=== PATIENT | male | born 1980 | race Two or more races ===

== ENCOUNTER 2024-11-15 21:15 | Emergency (ER) | payer OTHER ==
[~2024-11-15] VITALS: Ht 180.3 cm; Wt 100.8 kg
[2024-11-15 21:19] VITALS: BP 136/87; PULSE 68; RESP 24; TEMP 98.9; O2SAT 100
[2024-11-15 21:40] LABS: GLUCOMETER DEV NAME(LOC) ERT.6; GLUCOSE,POINT OF CARE 108 MG/DL (70-110)
[2024-11-15] MEDS ORDERED: CABENUVA IM (22:24)
== END 2024-11-15 23:35 | disposition left against medical advice (07) ==
LOC: EMS 21:15
DX: R51.9 Headache, unspecified (principal); R07.89 Other chest pain; R73.9 Hyperglycemia, unspecified; Z53.21 Procedure and treatment not carried out due to patient leaving prior to being seen by health care provider
CPT/HCPCS: 82962; 93005

== ENCOUNTER → 2024-12-01 | Emergency (ER) | payer OTHER ==
[~2024-12-01] VITALS: Ht 180.3 cm; Wt 100.0 kg
[~2024-12-01] MED LIST: CABENUVA IM
[2024-12-01 16:33] VITALS: BP 105/85; PULSE 108; RESP 20; TEMP 98.6; O2SAT 98
[2024-12-01 17:20] LABS: COVID AG,FIA SOURCE NASAL SWAB
[2024-12-01 17:20] LABS: BASOPHILS % (AUTO) 0.3 % (0.0-2.0); EOSINOPHILS % (AUTO) 0.4 % (1.0-6.0); HEMATOCRIT 46.8 % (41-53); HEMOGLOBIN 15.9 g/dL (13.5-17.5); LYMPHOCYTES # (AUTO) 1.3 K/uL (1.0-4.8); LYMPHOCYTES % (AUTO) 13.7 % (22.0-44.0); MEAN CORPUSCULAR HEMOGLOBIN 30.1 pg (26.0-34.0); MEAN CORPUSCULAR VOLUME 89 fL (80-100); MONOCYTES # (AUTO) 1.1 K/uL (0.1-1.0); MONOCYTES % (AUTO) 11.6 % (2.0-9.0); NEUTROPHILS # (AUTO) 6.8 K/uL (1.8-7.7); PLATELET COUNT (AUTO) 154 K/uL (150-450); RED BLOOD CELL COUNT(AUTO) 5.28 MIL/uL (4.50-5.90); RED CELL DISTRIBUTION WIDTH 12.7 % (11.5-14.5); WHITE BLOOD COUNT (AUTO) 9.2 K/uL (4.5-11.0)
[2024-12-01 17:29] LABS: CREATININE 1.43 mg/dL (0.60-1.30); POTASSIUM 4.2 mmol/L (3.5-5.1)
[2024-12-01 17:34] LABS: ALBUMIN 4.1 g/dL (3.4-5.0); BILIRUBIN,DIRECT 0.1 mg/dL (0.00-0.20); BILIRUBIN,TOTAL 0.8 mg/dL (0.1-1.0); TOTAL PROTEIN, SERUM 8.4 g/dL (6.4-8.2)
[2024-12-01 17:44] LABS: SARS-COV2 (COVID) ANTIGEN,FIA Negative (Negative)
[2024-12-01 17:45] LABS: INFLUENZA TYPE A NEGATIVE FOR TYPE A (NEGATIVE); INFLUENZA TYPE B NEGATIVE FOR TYPE B (NEGATIVE)
== END | disposition left against medical advice (07) ==
LOC: EMS 16:26
DX: R19.7 Diarrhea, unspecified (principal); Z20.822 Contact with and (suspected) exposure to COVID-19; Z53.21 Procedure and treatment not carried out due to patient leaving prior to being seen by health care provider
CPT/HCPCS: 80048; 80076; 83690; 85025; 87804